=== PATIENT | female | born 1980 | race Caucasian/White ===

== ENCOUNTER 2019-02-24 23:08 | Inpatient (IN) | payer OTHER ==
--- NOTE | 2019-02-25 02:24 | HP ---
CIWA Score Nausea/Vomitin-No Nausea/No Vomiting Muscle Tremors: 1-None Visible, but [place] Anxiety: 2 Agitation: 2 Paroxysmal Sweats: 3 Orientation: 0-Oriented Tacttile Disturbances: 3-Moderate Itch/Numb/Burn (itching) Auditory Disturbances: 0-None Visual Disturbances: 0-None Headache: 0-None Present CIWA-Ar Total Score: 11 - Admission Criteria OASAS Guidelines: Admission for Medically Managed Detox: Requires at least one of the followin. CIWA greater than 12 2. Seizures within the past 24 hours 3. Delirium tremens within the past 24 hours 4. Hallucinations within the past 24 hours 5. Acute intervention needed for co occurring medical disorder 6. Acute intervention needed for co occurring psychiatric disorder 7. Severe withdrawal that cannot be handled at a lower level of care (continued vomiting, continued diarrhea, abnormal vital signs) requiring intravenous medication and/or fluids 8. Patient presents the following: Acute intervention needed for co-occurring med or psych disorder (feels depressed) Admission Criteria Met: Admission criteria met Admission ROS S - [facility] Chief Complaint: seeking detox from xanax Allergies/Adverse Reactions: Allergies Allergy/AdvReac Type Severity Reaction Status Date / Time No Known Allergies Allergy Verified 02/25/19 02:16 History of Present Illness: here for detox. client is referred by her methadone program vip. she reports methadone dose 70 mg . ldm 02/24/2019 pending verification. client presents with c/o withdrawal sx's. reports using apporx 8 mg of xanax per day denies hx/ o seizures, black outs, avh. reports longest clean time 5 years relapsing 1 year ago. lives with boyfriend, unemployed. denies legals Exam Limitations: No Limitations - Ebola screening Have you traveled outside of the country in the last 21 days: No (N) Have you had contact with anyone from an Ebola affected area: No Do you have a fever: No - Review of Systems Constitutional: Chills, Loss of Appetite, Changes in sleep, Unintentional Wgt. Loss EENT: reports: No Symptoms Reported, Dental Problems (top dentures, no bottom teeth) Respiratory: reports: No Symptoms reported Cardiac: reports: No Symptoms Reported GI: reports: No Symptoms Reported : reports: No Symptoms Reported Musculoskeletal: reports: No Symptoms Reported Integumentary: reports: No Symptoms Reported Neuro: reports: No Symptoms reported Endocrine: reports: No Symptoms Reported Hematology: reports: No Symptoms Reported Psychiatric: reports: Depressed (situational-denies si) Other Systems: Reviewed and Negative Patient History - Patient Medical History Hx Anemia: No Hx Asthma: No Hx Chronic Obstructive Pulmonary Disease (COPD): No Hx Cancer: No Hx Cardiac Disorders: No Hx Congestive Heart Failure: No Hx Hypertension: No Hx Hypercholesterolemia: No Hx Pacemaker: No HX Cerebrovascular Accident: No Hx Seizures: No Hx Dementia: No Hx Diabetes: No Hx Liver Disease: No Hx Genitourinary Disorders: No Hx Sexually Transmitted Disorders: No Hx Renal Disease (ESRD): No Hx Human Immunodeficiency Virus (HIV): No Hx Hepatitis C: Yes (pending txment) Hx Depression: Yes - Patient Surgical History Past Surgical History: Yes Other Surgical History: exp lap Anesthesia Reaction: No - PPD History Previous Implant?: Yes Documented Results: Negative w/o proof Implanted On Prior [facility] Admission?: No PPD to be Administered?: Yes - Reproductive History Patient is a Female of Child Bearing Age (11 -55 yrs old): Yes Last Menstrual Period: 02/23/19 LMP comment: reg Patient : No (neg [facility] [place]) - Smoking Cessation Smoking history: Current every day smoker Have you smoked in the past 12 months: Yes Aproximately how many cigarettes per day: 4 Cigars Per Day: 0 Hx Chewing Tobacco Use: No Initiated information on smoking cessation: Yes 'Breaking Loose' booklet given: 02/25/19 - Substance & Tx. History Hx Alcohol Use: Yes Hx Substance Use: Yes Substance Use Type: Alcohol, Cocaine, Prescribed (mtd) Hx Substance Use Treatment: No - Substances abused Alprazolam (Xanax) Substance route: Oral Frequency: Daily Amount used: 8mg Age of first use: 36 Date of last use: 02/24/19 Admission Physical Exam [facility] - Physical General Appearance: Yes: Mild Distress, Irritable, Anxious HEENTM: Yes: EOMI, Normocephalic, Normal Voice, [place], Pharynx Normal, Other ( top dentures) Respiratory: Yes: Chest Non-Tender, Lungs Clear, Normal Breath Sounds, No Respiratory Distress, No Accessory Muscle Use Neck: Yes: No masses,lesions,Nodules, Supple, Trachea in good position Breast: Yes: Breasts Symetrical (piercing noted) Cardiology: Yes: Regular Rhythm, Regular Rate, S1, S2 Abdominal: Yes: Normal Bowel Sounds, Non Tender, Soft, Surgical Scar Genitourinary: Yes: Within Normal Limits Back: Yes: Normal Inspection Musculoskeletal: Yes: full range of Motion, Gait Steady Extremities: Yes: Normal Capillary Refill, Non-Tender, Tremors (felt) Neurological: Yes: Fully Oriented, Alert, Motor Strength 5/5, Depressed Affect ( situational-denies si) Integumentary: Yes: Warm, [place] Lymphatic: Yes: Within Normal Limits - Diagnostic (1) Sedative, hypnotic or anxiolytic dependence, uncomplicated Current Visit: Yes Status: Acute (2) Cocaine dependence, uncomplicated Current Visit: Yes Status: Acute (3) Methadone maintenance therapy patient Current Visit: Yes Status: Chronic Comment: vip (4) Substance induced mood disorder Current Visit: Yes Status: Acute (5) Depressed affect Current Visit: Yes Status: Acute (6) Nicotine dependence Current Visit: Yes Status: Acute Cleared for Admission [facility] - Detox or Rehab [facility] Level of Care: Medically Managed Detox Regimen/Protocol: Valium Claeared for Rehab Admission: No Inpatient Rehab Admission - Rehab Decision to Admit Inpatient rehab admission?: No
[2019-02-25 02:26] VITALS: BMI 16.9
[2019-02-25] MEDS ORDERED: IBUPROFEN 400 MG TABLET (FP) PO PRN (02:35)
[2019-02-25] MEDS ORDERED: MAGNESIUM HYDROX 2400MG/30ML ORAL SUSPENSION 30 ML CUP PO PRN (02:35)
[2019-02-25] MEDS ORDERED: hydrOXYzine PAMOATE 25 MG CAPSULE (FP) PO PRN (02:35)
[2019-02-25] MEDS ORDERED: traZODone HCL 50 MG TABLET (FP) PO PRN (02:35)
[2019-02-25] MEDS ORDERED: diazePAM 5 MG TABLET PO PRN (02:35)
[2019-02-25] MEDS ORDERED: MENTHOL/PHENOL 1 EACH UD MM PRN (02:35)
[2019-02-25] MEDS ORDERED: PROCHLORPERAZINE MALEATE 5 MG TABLET PO PRN (02:35)
[2019-02-25] MEDS ORDERED: MELATONIN 5 MG TABLETS PO PRN (02:35)
[2019-02-25] MEDS ORDERED: MAG HYDROX/AL HYDROX/SIMETH 30 ML UNIT-DOSE CUP PO PRN (02:35)
[2019-02-25] MEDS ORDERED: METHOCARBAMOL 500 MG TABLET PO PRN (02:35)
[2019-02-25] MEDS ORDERED: DICYCLOMINE HCL 10 MG CAPSULE PO PRN (02:35)
[2019-02-25] MEDS ORDERED: NICOTINE POLACRILEX 2 MG GUM BUC PRN (02:35)
[2019-02-25] MEDS ORDERED: BISMUTH SUBSALICYLATE 524 MG/30 ML UD PO PRN (02:35)
[2019-02-25] MEDS ORDERED: MAGNESIUM CITRATE 300 ML BOTTLE PO PRN (02:35)
[2019-02-25] MEDS ORDERED: guaiFENesin 200 MG/10 ML 10 ML UNIT-DOSE CUPS PO PRN (02:35)
[2019-02-25] MEDS ORDERED: ACETAMINOPHEN 325 MG TABLET (FP) PO PRN ×2 (02:35)
[2019-02-25] MEDS ORDERED: P-EPHED 60MG/TRIPROLIDI 2.5MG TABLET PO PRN (02:35)
[2019-02-25] MEDS: diazePAM 5 MG TABLET PO SCH ×3 (05:43→22:41)
--- NOTE | 2019-02-25 08:55 | CONSULT ---
[facility] Psychiatric Consult - Data Date of interview: 02/25/19 Admission source: [facility] Identifying data: Manager Of Loss Prevention Operations approached patient multiple times for completion of psychiatric consultation. Patient presents as fatigue and somnolent. Psychiatric consultaton deferred. Nursing staff informed.
[2019-02-25] MEDS: NICOTINE 14 MG/24 HOURS TOPICAL PATCH TD SCH (10:45)
[2019-02-25] MEDS: PRENATAL VITAMINS W/ FOLIC ACID TABLET (FP) PO SCH (10:47)
--- NOTE | 2019-02-25 11:08 | PN ---
S CIWA - CIWA Score Nausea/Vomitin-Mild Nausea/No Vomiting Muscle Tremors: 2 Anxiety: 2 Agitation: 2 Paroxysmal Sweats: 2 Orientation: 1-Uncertain about Date Tacttile Disturbances: 1-Very Mild Itch/Numbness Auditory Disturbances: 0-None Visual Disturbances: 0-None Headache: 2-Mild CIWA-Ar Total Score: 13 [facility] Progress Note (SOAP) Subjective: 38 years old female admitted on 02/25/19 for benzo withdrawal sx management treated with valium detox regimen patient is in the methadone program taking 70 mg po daily take home bottle indicated 02/25/19 70 mg po order methadone 70 mg po x 1 as per verification from the take home bottle Objective: 02/25/19 11:19 Vital Signs Temperature 98.2 F 02/25/19 09:29 Pulse Rate 93 H 02/25/19 09:29 Respiratory Rate 20 02/25/19 09:29 Blood Pressure 92/55 L 02/25/19 09:29 O2 Sat by Pulse Oximetry (%) 02/25/19 11:19 lab pending Assessment: 02/25/19 11:19 benzo withdrawal sx Plan: continue valium detox regimen
[2019-02-25] MEDS ORDERED: METHADONE HCL 10 MG TABLET PO ONE (11:16)
[2019-02-25] MEDS ORDERED: METHADONE 40 MG, METHADONE 30 MG PO ONE (12:15)
[2019-02-25 12:37] LABS: HEMOGLOBIN 12.4 GM/dL (10.7-15.3); MCH 30.7 pg (25.7-33.7); MCHC 33.5 g/dl (32.0-36.0); MEAN CELL VOLUME 91.4 fl (80-96); MEAN PLT VOLUME 9.4 fl (7.5-11.1); PLATELET COUNT 156 K/MM3 (134-434); RBC 4.05 M/mm3 (3.60-5.2); RDW 13.5 % (11.6-15.6); WHITE BLOOD COUNT 6.2 K/mm3 (4.0-10.0)
[2019-02-25 12:46] LABS: ALBUMIN 3.5 g/dl (3.4-5.0); BILIRUBIN,TOTAL 0.3 mg/dL (0.2-1); BLOOD UREA NITROGEN 10.7 mg/dL (7-18); CALCIUM 8.6 mg/dL (8.5-10.1); CREATININE 0.6 mg/dL (0.55-1.3); POTASSIUM 3.8 mmol/L (3.5-5.1); TOT PROT 6.3 g/dl (6.4-8.2)
[2019-02-25] MEDS ORDERED: METHADONE HCL 10 MG TABLET ONE (15:55)
[2019-02-25] MEDS ORDERED: METHADONE HCL 40 MG DISPERSABLE TABLET ONE (15:57)
[2019-02-25] MEDS: ONDANSETRON *ODT* 4 MG TABLET SL PRN (22:40)
[2019-02-25] MEDS: THIAMINE HCL 100 MG TABLET (FP) PO SCH (22:41)
[2019-02-26] MEDS: diazePAM 5 MG TABLET PO SCH ×2 (06:05→18:46)
--- NOTE | 2019-02-26 09:49 | PN ---
S CIWA - CIWA Score Nausea/Vomitin (Zofran 4 mg sl x 1) Muscle Tremors: 1-None Visible, but [place] Anxiety: 2 Agitation: 0-Normal Activity Paroxysmal Sweats: No Perspiration Orientation: 0-Oriented Tacttile Disturbances: 0-None Auditory Disturbances: 0-None Visual Disturbances: 0-None Headache: 0-None Present CIWA-Ar Total Score: 8 [facility] Progress Note (SOAP) Subjective: 38 years old female admitted on 02/25/19 for benzo withdrawal sx management treated with valium detox regimen nausea vomited x 1 after breakfast undigested food noted zofran 4 mg sl x 1 Objective: 02/26/19 09:48 Vital Signs Temperature 97.7 F 02/26/19 09:10 Pulse Rate 80 02/26/19 09:10 Respiratory Rate 18 02/26/19 09:10 Blood Pressure 104/74 02/26/19 09:10 O2 Sat by Pulse Oximetry (%) Laboratory Last Values WBC 6.2 K/mm3 (4.0-10.0) 02/25/19 08:55 RBC 4.05 M/mm3 (3.60-5.2) 02/25/19 08:55 Hgb 12.4 GM/dL (10.7-15.3) 02/25/19 08:55 Hct 37.0 % (32.4-45.2) 02/25/19 08:55 MCV 91.4 fl (80-96) 02/25/19 08:55 MCH 30.7 pg (25.7-33.7) 02/25/19 08:55 MCHC 33.5 g/dl (32.0-36.0) 02/25/19 08:55 RDW 13.5 % (11.6-15.6) 02/25/19 08:55 Plt Count 156 K/MM3 (134-434) 02/25/19 08:55 MPV 9.4 fl (7.5-11.1) 02/25/19 08:55 Sodium 139 mmol/L (136-145) 02/25/19 08:55 Potassium 3.8 mmol/L (3.5-5.1) 02/25/19 08:55 Chloride 107 mmol/L (98-107) 02/25/19 08:55 Carbon Dioxide 29 mmol/L (21-32) 02/25/19 08:55 Anion Gap 4 MMOL/L (8-16) L 02/25/19 08:55 BUN 10.7 mg/dL (7-18) 02/25/19 08:55 Creatinine 0.6 mg/dL (0.55-1.3) 02/25/19 08:55 Est GFR (CKD-EPI)AfAm 133.07 02/25/19 08:55 Est GFR (CKD-EPI)NonAf 114.82 02/25/19 08:55 Random Glucose 101 mg/dL (74-106) 02/25/19 08:55 Calcium 8.6 mg/dL (8.5-10.1) 02/25/19 08:55 Total Bilirubin 0.3 mg/dL (0.2-1) 02/25/19 08:55 AST 19 U/L (15-37) 02/25/19 08:55 ALT 25 U/L (13-61) 02/25/19 08:55 Alkaline Phosphatase 51 U/L (45-117) 02/25/19 08:55 Total Protein 6.3 g/dl (6.4-8.2) L 02/25/19 08:55 Albumin 3.5 g/dl (3.4-5.0) 02/25/19 08:55 lab noted Assessment: 02/26/19 09:48 benzo withdrawal sx Plan: continue valium detox regimen methadone 70mg po daily verified resume daily po
[2019-02-26] MEDS ORDERED: METHADONE 40 MG, METHADONE 30 MG PO ONE (10:00)
[2019-02-26] MEDS ORDERED: ONDANSETRON *ODT* 4 MG TABLET SL ONE (10:00)
[2019-02-26] MEDS ORDERED: METHADONE HCL 10 MG TABLET PO ONE (10:00)
[2019-02-26] MEDS ORDERED: METHADONE HCL 40 MG DISPERSABLE TABLET ONE (10:32)
[2019-02-26] MEDS ORDERED: METHADONE HCL 10 MG TABLET ONE (10:32)
[2019-02-26] MEDS: PRENATAL VITAMINS W/ FOLIC ACID TABLET (FP) PO SCH (10:40)
[2019-02-26] MEDS: NICOTINE 14 MG/24 HOURS TOPICAL PATCH TD SCH (10:41)
--- NOTE | 2019-02-26 12:00 | EKG ---
Test Reason : Blood Pressure : / mmHG Vent. Rate : 087 BPM Atrial Rate : 087 BPM P-R Int : 136 ms QRS Dur : 092 ms QT Int : 410 ms P-R-T Axes : 084 081 047 degrees QTc Int : 493 ms NORMAL SINUS RHYTHM PROLONGED QT ABNORMAL ECG NO PREVIOUS ECGS AVAILABLE Confirmed by ROSY ARCEO MD ([id number]) on 02/26/2019 12:00:10 PM Referred By: WALI Confirmed By:ROSY ARCEO MD
[2019-02-26] MEDS: ONDANSETRON *ODT* 4 MG TABLET SL PRN (22:31)
[2019-02-26] MEDS: THIAMINE HCL 100 MG TABLET (FP) PO SCH (23:14)
[2019-02-27] MEDS ORDERED: METHADONE HCL 10 MG TABLET ONE (04:09)
[2019-02-27] MEDS ORDERED: METHADONE HCL 40 MG DISPERSABLE TABLET ONE (04:09)
[2019-02-27] MEDS ORDERED: METHADONE HCL 10 MG TABLET PO SCH (06:00)
[2019-02-27] MEDS ORDERED: diazePAM 5 MG TABLET PO ONE (06:00)
[2019-02-27] MEDS ORDERED: METHADONE 40 MG, METHADONE 30 MG PO SCH (06:00)
[2019-02-27 09:22] VITALS: BP 109/67; PULSE 77; TEMP 97.6
--- NOTE | 2019-02-27 10:58 | DS ---
[facility] Detox Discharge Summary Admission Date: 02/25/19 Discharge Date: 02/27/19 - History Present History: Sedative Dependence Additional Comments: 38 years old female admitted on 02/25/19 for benzo withdrawal sx management treated with valium detox regimen patient tolerated well alert oriented x 3 cardiac s1s2 regular rate rhythm respiratory clear lung bilaterally on auscultation skin warm and dry Pertinent Past History: patient agrees to return to methadone program for aftercare will bringing in lab report and medication list for follow up - Physical Exam Results Vital Signs: Vital Signs Temperature 97.6 F 02/27/19 09:21 Pulse Rate 77 02/27/19 09:21 Respiratory Rate 16 02/27/19 09:21 Blood Pressure 109/67 02/27/19 09:21 O2 Sat by Pulse Oximetry (%) Pertinent Admission Physical Exam Findings: benzo withdrawal sx - Treatment Hospital Course: Detox Protocol Followed, Detoxed Safely, Responded well, Discharged Condition Good, Rehab Referral Accepted Patient has Accepted a Rehab Referral to: methadone program vip - Medication Discharge Medications: Ambulatory Orders Methadone HCl [Dolophine HCl] 70 mg PO 02/25/19 Naloxone HCl [Narcan] 4 mg NS ASDIR PRN #1 spray 02/26/19 - Diagnosis (1) Nicotine dependence Status: Acute Qualifiers: Nicotine product type: cigarettes Substance use status: in withdrawal Qualified Code(s): F17.213 - Nicotine dependence, cigarettes, with withdrawal (2) Sedative, hypnotic or anxiolytic dependence, uncomplicated Status: Acute (3) Substance induced mood disorder Status: Suspected (4) Methadone maintenance therapy patient Status: Chronic (5) GERD (gastroesophageal reflux disease) Status: Chronic Qualifiers: Esophagitis presence: esophagitis presence not specified Qualified Code(s) : K21.9 - Gastro-esophageal reflux disease without esophagitis - AMA Did Patient Leave Against Medical Advice: No CIWA Score - CIWA Score Nausea/Vomitin-No Nausea/No Vomiting (Zofran 4 mg sl x 1) Muscle Tremors: 1-None Visible, but [place] Anxiety: 1-Mildly Anxious Agitation: 1-Slight > Activity Paroxysmal Sweats: 1-Minimal Palms Moist Orientation: 0-Oriented Tacttile Disturbances: 0-None Auditory Disturbances: 0-None Visual Disturbances: 0-None Headache: 1-Very Mild CIWA-Ar Total Score: 5
== END 2019-02-27 09:40 | disposition home or self-care (01) | DRG 773 ==
LOC: YASAS 23:08 → Y3N 02-25 02:34
PROVIDERS: ADMIT Allergy & Immunology; ATTEND Allergy & Immunology
PROC: HZ2ZZZZ Detoxification Services for Substance Abuse Treatment (ICD-10-PCS; principal; 2019-02-25)
DX: F13.230 Sedative, hypnotic or anxiolytic dependence with withdrawal, uncomplicated (principal); F11.20 Opioid dependence, uncomplicated; F14.20 Cocaine dependence, uncomplicated; F17.210 Nicotine dependence, cigarettes, uncomplicated; F19.24 Other psychoactive substance dependence with psychoactive substance-induced mood disorder; K21.9 Gastro-esophageal reflux disease without esophagitis; R45.89 Other symptoms and signs involving emotional state
CPT/HCPCS: 36415; 80053; 81025; 85027; 86593; 93005; 93010; Q0162

== ENCOUNTER 2019-04-22 22:53 | Inpatient (IN) | payer OTHER ==
[2019-04-22] MEDS ORDERED: P-EPHED 60MG/TRIPROLIDI 2.5MG TABLET PO PRN (23:10)
[2019-04-22] MEDS ORDERED: MAGNESIUM HYDROX 2400MG/30ML ORAL SUSPENSION 30 ML CUP PO PRN (23:10)
[2019-04-22] MEDS ORDERED: ACETAMINOPHEN 325 MG TABLET (FP) PO PRN ×2 (23:10)
[2019-04-22] MEDS ORDERED: ONDANSETRON *ODT* 4 MG TABLET SL PRN (23:10)
[2019-04-22] MEDS ORDERED: MAG HYDROX/AL HYDROX/SIMETH 30 ML UNIT-DOSE CUP PO PRN (23:10)
[2019-04-22] MEDS ORDERED: MELATONIN 5 MG TABLETS PO PRN (23:10)
[2019-04-22] MEDS ORDERED: IBUPROFEN 400 MG TABLET (FP) PO PRN (23:10)
[2019-04-22] MEDS ORDERED: METHOCARBAMOL 500 MG TABLET PO PRN (23:10)
[2019-04-22] MEDS ORDERED: guaiFENesin 200 MG/10 ML 10 ML UNIT-DOSE CUPS PO PRN (23:10)
[2019-04-22] MEDS ORDERED: hydrOXYzine PAMOATE 25 MG CAPSULE (FP) PO PRN (23:10)
[2019-04-22] MEDS ORDERED: MENTHOL/PHENOL 1 EACH UD MM PRN (23:10)
[2019-04-22] MEDS ORDERED: NICOTINE POLACRILEX 2 MG GUM BUC PRN (23:10)
[2019-04-22] MEDS ORDERED: MAGNESIUM CITRATE 300 ML BOTTLE PO PRN (23:10)
[2019-04-22] MEDS ORDERED: BISMUTH SUBSALICYLATE 524 MG/30 ML UD PO PRN (23:10)
--- NOTE | 2019-04-22 23:30 | HP ---
CIWA Score Nausea/Vomitin-No Nausea/No Vomiting Muscle Tremors: None Anxiety: 4-Mod. Anxious/Guarded Agitation: 4-Moderately Restless Paroxysmal Sweats: 4-Forehead w/Sweat Beads Orientation: 1-Uncertain about Date Tacttile Disturbances: 0-None Auditory Disturbances: 0-None Visual Disturbances: 0-None Headache: 3-Moderate CIWA-Ar Total Score: 16 - Admission Criteria OASAS Guidelines: Admission for Medically Managed Detox: Requires at least one of the followin. CIWA greater than 12 2. Seizures within the past 24 hours 3. Delirium tremens within the past 24 hours 4. Hallucinations within the past 24 hours 5. Acute intervention needed for co occurring medical disorder 6. Acute intervention needed for co occurring psychiatric disorder 7. Severe withdrawal that cannot be handled at a lower level of care (continued vomiting, continued diarrhea, abnormal vital signs) requiring intravenous medication and/or fluids 8. Patient presents the following: CIWA greater than 12, Acute intervention needed for co-occurring med or psych disorder (signed out ama from [facility] detox 2 days ago client report) Admission Criteria Met: Admission criteria met Admitting History and Physical - Past Medical History ...LMP: 02/23/19 - Smoking History Smoking history: Current every day smoker Have you smoked in the past 12 months: Yes Aproximately how many cigarettes per day: 4 - Alcohol/Substance Use Hx Alcohol Use: Yes Admission ROS [facility] - [facility] Chief Complaint: WITHDRAWAL SX'S Allergies/Adverse Reactions: Allergies Allergy/AdvReac Type Severity Reaction Status Date / Time No Known Allergies Allergy Verified 04/22/19 23:29 History of Present Illness: Here for detox. client is referred by her methadone program vip. she reports methadone dose 70 mg . pending verification. client presents with c/o withdrawal sx's. reports using 6 MG OF XANAX QOD AND alcohol 1 to 2 nips daily of alcohol and intermittent use of heroin. she reports signing out of [facility] 2 days ago due to an issue with another client. denies hx/o seizures, black outs, avh. reports longest clean time 5 years relapsing 1 year ago. lives with boyfriend, unemployed. denies legals Exam Limitations: No Limitations - Ebola screening Have you traveled outside of the country in the last 21 days: No (N) Have you had contact with anyone from an Ebola affected area: No Do you have a fever: No - Review of Systems Constitutional: Chills, Night Sweats, Changes in sleep EENT: reports: Dental Problems (TOP) Respiratory: reports: No Symptoms reported Cardiac: reports: No Symptoms Reported GI: reports: No Symptoms Reported, Poor Appetite : reports: No Symptoms Reported Musculoskeletal: reports: Back Pain Integumentary: reports: Sweating Neuro: reports: Seizure (hx) Endocrine: reports: No Symptoms Reported Hematology: reports: No Symptoms Reported Psychiatric: reports: Orientated x3, Anxious, Depressed (denies si) Other Systems: Reviewed and Negative Patient History - Patient Medical History Hx Anemia: No Hx Asthma: No Hx Chronic Obstructive Pulmonary Disease (COPD): No Hx Cancer: No Hx Cardiac Disorders: No Hx Congestive Heart Failure: No Hx Hypertension: No Hx Hypercholesterolemia: No Hx Pacemaker: No HX Cerebrovascular Accident: No Hx Seizures: Yes (2018) Hx Dementia: Yes Hx Diabetes: No Hx Liver Disease: No Hx Genitourinary Disorders: No Hx Sexually Transmitted Disorders: No Hx Renal Disease (ESRD): No Hx Human Immunodeficiency Virus (HIV): No Hx Hepatitis C: Yes (pending txment) Hx Depression: Yes - Patient Surgical History Past Surgical History: Yes Other Surgical History: exp lap Anesthesia Reaction: No - PPD History Previous Implant?: Yes Documented Results: Negative w/proof Implanted On Prior [facility] Admission?: Yes Date: 02/27/19 Results: 0MM PPD to be Administered?: No - Reproductive History Patient is a Female of Child Bearing Age (11 -55 yrs old): Yes Last Menstrual Period: 04/21/19 Patient : No ([place] [facility] [place] - Smoking Cessation Smoking history: Current every day smoker Have you smoked in the past 12 months: Yes Aproximately how many cigarettes per day: 4 Cigars Per Day: 0 Hx Chewing Tobacco Use: No Initiated information on smoking cessation: Yes 'Breaking Loose' booklet given: 04/22/19 - Substance & Tx. History Hx Alcohol Use: Yes Hx Substance Use: Yes Substance Use Type: Cocaine, Tranquilizers (XANAX) Hx Substance Use Treatment: Yes ([facility]) - Substances abused Alprazolam (Xanax) Substance route: Oral Frequency: Daily Amount used: 8MG Age of first use: 36 Date of last use: 04/22/19 Heroin Other (specify): sniff Frequency: 3-6 times per week Amount used: 5 bags Age of first use: 16 Date of last use: 04/22/19 Admission Physical Exam [facility] - Physical General Appearance: Yes: Moderate Distress, Sweating, Anxious HEENTM: Yes: EOMI, Normocephalic, Normal Voice, [place], Pharynx Normal, Nasal Congestion, Other (dentures uppers) Respiratory: Yes: Chest Non-Tender, Lungs Clear, Normal Breath Sounds, No Respiratory Distress, No Accessory Muscle Use Neck: Yes: No masses,lesions,Nodules, Supple, Trachea in good position Breast: Yes: Breasts Symetrical, Other (nipple ring) Cardiology: Yes: Regular Rhythm, Regular Rate, S1, S2 Abdominal: Yes: Normal Bowel Sounds, Flat, Soft, Surgical Scar Genitourinary: Yes: Within Normal Limits Back: Yes: Normal Inspection Musculoskeletal: Yes: Gait Steady Extremities: Yes: Normal Capillary Refill, Normal Range of Motion, Non-Tender Neurological: Yes: Fully Oriented, Alert, Motor Strength 5/5, Depressed Affect Integumentary: Yes: Moist, Other (pilorection) Lymphatic: Yes: Within Normal Limits - Diagnostic (1) Cocaine dependence, uncomplicated Current Visit: Yes Status: Acute (2) Depressed affect Current Visit: Yes Status: Acute (3) Nicotine dependence Current Visit: Yes Status: Chronic Qualifiers: Nicotine product type: cigarettes Substance use status: uncomplicated Qualified Code(s): F17.210 - Nicotine dependence, cigarettes, uncomplicated (4) Sedative, hypnotic or anxiolytic dependence, uncomplicated Current Visit: Yes Status: Acute (5) GERD (gastroesophageal reflux disease) Current Visit: Yes Status: Chronic Qualifiers: Esophagitis presence: esophagitis presence not specified Qualified Code(s) : K21.9 - Gastro-esophageal reflux disease without esophagitis (6) Methadone maintenance therapy patient Current Visit: Yes Status: Chronic Comment: vip (7) Substance induced mood disorder Current Visit: Yes Status: Suspected (8) Alcohol dependence with withdrawal, uncomplicated Current Visit: Yes Status: Acute Cleared for Admission [facility] - Detox or Rehab [facility] Level of Care: Medically Managed Detox Regimen/Protocol: Librium Claeared for Rehab Admission: No Breathalyzer - Breathalyzer Breathalyzer: 0 Urine Drug Screen - Test Device Lot number: [id number] Expiration date: 10/25/20 - Control Is test valid?: Yes - Results Drug screen NEGATIVE: No Urine drug screen results: HOLDEN-Cocaine, MTD-Methadone, BZO-Benzodiazepines Inpatient Rehab Admission - Rehab Decision to Admit Inpatient rehab admission?: No
[2019-04-22 23:44] VITALS: BMI 19.1
[2019-04-23] MEDS ORDERED: chlordiazePOXIDE HCL 10 MG CAPSULE PO PRN (00:08)
[2019-04-23] MEDS ORDERED: chlordiazePOXIDE HCL 25 MG CAPSULE PO SCH (05:00)
[2019-04-23 06:20] VITALS: BP 104/65; PULSE 81; TEMP 97.8
--- NOTE | 2019-04-23 07:41 | DS ---
[facility] Detox Discharge Summary Admission Date: 04/22/19 Discharge Date: 04/23/19 - History Present History: Alcohol Dependence, Cocaine Dependence, Opioid Dependence, Sedative Dependence, MMTP Additional Comments: client aborted admission after a few hours on the unit. attempts to encourage client to continue txment not successful. client states she wants to sign out as she doesnt like this place. - Physical Exam Results Vital Signs: Vital Signs Temperature 97.8 F 04/23/19 06:19 Pulse Rate 81 04/23/19 06:19 Respiratory Rate 18 04/23/19 06:19 Blood Pressure 104/65 04/23/19 06:19 O2 Sat by Pulse Oximetry (%) - Treatment Hospital Course: Discharged Condition Good Patient has Accepted a Rehab Referral to: returning back to her mmtp - Medication Discharge Medications: Ambulatory Orders Methadone HCl [Dolophine HCl] 70 mg PO DAILY 02/25/19 - Diagnosis (1) Cocaine dependence, uncomplicated Current Visit: Yes Status: Acute (2) Depressed affect Current Visit: Yes Status: Acute (3) Nicotine dependence Current Visit: Yes Status: Chronic Qualifiers: Nicotine product type: cigarettes Substance use status: uncomplicated Qualified Code(s): F17.210 - Nicotine dependence, cigarettes, uncomplicated (4) Sedative, hypnotic or anxiolytic dependence, uncomplicated Current Visit: Yes Status: Acute (5) GERD (gastroesophageal reflux disease) Current Visit: Yes Status: Chronic Qualifiers: Esophagitis presence: esophagitis presence not specified Qualified Code(s) : K21.9 - Gastro-esophageal reflux disease without esophagitis (6) Methadone maintenance therapy patient Current Visit: Yes Status: Chronic (7) Substance induced mood disorder Current Visit: Yes Status: Suspected (8) Alcohol dependence with withdrawal, uncomplicated Current Visit: Yes Status: Acute - AMA Did Patient Leave Against Medical Advice: Yes
[2019-04-23] MEDS ORDERED: PRENATAL VITAMINS W/ FOLIC ACID TABLET (FP) PO SCH (10:00)
[2019-04-23] MEDS ORDERED: NICOTINE 14 MG/24 HOURS TOPICAL PATCH TD SCH (10:00)
[2019-04-23] MEDS ORDERED: THIAMINE HCL 100 MG TABLET (FP) PO SCH (22:00)
[2019-04-24] MEDS ORDERED: chlordiazePOXIDE 5 MG CAPSULE PO SCH (05:00)
[2019-04-25] MEDS ORDERED: chlordiazePOXIDE HCL 10 MG CAPSULE PO PRN
[2019-04-25] MEDS ORDERED: chlordiazePOXIDE HCL 10 MG CAPSULE PO SCH (05:00)
[2019-04-26] MEDS ORDERED: chlordiazePOXIDE HCL 10 MG CAPSULE PO ONE (05:00)
== END 2019-04-23 07:41 | disposition left against medical advice (07) | DRG 770 ==
LOC: YASAS 22:53 → Y3N 23:48
PROVIDERS: ADMIT Allergy & Immunology; ATTEND Allergy & Immunology
PROC: HZ2ZZZZ Detoxification Services for Substance Abuse Treatment (ICD-10-PCS; principal; 2019-04-22)
DX: F10.230 Alcohol dependence with withdrawal, uncomplicated (principal); F11.20 Opioid dependence, uncomplicated; F13.230 Sedative, hypnotic or anxiolytic dependence with withdrawal, uncomplicated; F14.20 Cocaine dependence, uncomplicated; F17.210 Nicotine dependence, cigarettes, uncomplicated; F32.9 Major depressive disorder, single episode, unspecified; F19.24 Other psychoactive substance dependence with psychoactive substance-induced mood disorder; K21.9 Gastro-esophageal reflux disease without esophagitis; Z86.69 Personal history of other diseases of the nervous system and sense organs; Z56.0 Unemployment, unspecified

== ENCOUNTER 2019-04-29 02:26 | Inpatient (IN) | payer OTHER ==
[2019-04-29 03:31] VITALS: BP 111/66; PULSE 96; TEMP 98.1; BMI 19.4
--- NOTE | 2019-04-29 04:30 | HP ---
CIWA Score Nausea/Vomitin-No Nausea/No Vomiting Muscle Tremors: 4-Moderate,w/Arms Extend Anxiety: 3 Agitation: 4-Moderately Restless Paroxysmal Sweats: 3 (Increased facial moisture) Orientation: 0-Oriented Tacttile Disturbances: 0-None Auditory Disturbances: 0-None Visual Disturbances: 0-None Headache: 1-Very Mild CIWA-Ar Total Score: 15 - Admission Criteria OASAS Guidelines: Admission for Medically Managed Detox: Requires at least one of the followin. CIWA greater than 12 2. Seizures within the past 24 hours 3. Delirium tremens within the past 24 hours 4. Hallucinations within the past 24 hours 5. Acute intervention needed for co occurring medical disorder 6. Acute intervention needed for co occurring psychiatric disorder 7. Severe withdrawal that cannot be handled at a lower level of care (continued vomiting, continued diarrhea, abnormal vital signs) requiring intravenous medication and/or fluids 8. Patient presents the following: CIWA greater than 12 Admission Criteria Met: Admission criteria met Admitting History and Physical - Past Medical History ...LMP: 04/21/19 - Smoking History Smoking history: Current every day smoker Have you smoked in the past 12 months: Yes Aproximately how many cigarettes per day: 4 - Alcohol/Substance Use Hx Alcohol Use: Yes Admission ROS S - HPI Chief Complaint: "I need to stop the pills and liquor" Allergies/Adverse Reactions: Allergies Allergy/AdvReac Type Severity Reaction Status Date / Time No Known Allergies Allergy Verified 04/22/19 23:29 History of Present Illness: 39 yo presents w/ alcohol withdrawal symptoms seeking detox. CINTHYA: 0.0 UTox:HOLDEN/MTD/BZO Denies hx seizures, blackouts or overdoses. BASED ON PATIENT'S ASSESSMENT, PATIENT NEEDS TREATMENT FOR MORE THAN 2 NIGHTS. Discussed patient past 2 admissions and leaving AMA. She states that she will be staying and completing this time. Alcohol use began at age 15. Currently drinks 1 pint/day. Last drink this a.m. Benzo(Xanax and Klonopin) use began at age 18. Currently takes 3- 2mg pills/day. Heroin use began at age 15. Stable on methadone. Currently on VIP -OTP. Current dose is Methadone 70 mg. Tuesday reviewed and in security. Denies recent opiate relapse. Encouraged to obtain a Narcan kit. Nicotine: Smokes 1/2 PPD. PMHx: Endocarditis @ age 20. MHHx: Anxiety. Depression. Insomnia. Denies thoughts of harming self or others. SHx: Domiciled. Unemployed. Denies legal issues. Patient Name: Chichi Pires Date: 1980 Address: [facility] [address] [place] [address] Sex: Female Rx Written Rx Dispensed Drug Quantity Days Supply Prescriber Name 04/06/2019 04/06/2019 zolpidem tartrate 10 mg tablet 30 30 Ashvin Carrion 02/01/2019 02/02/2019 zolpidem tartrate 10 mg tablet 30 30 Tosin Pool NP 10/27/2018 12/28/2018 zolpidem tartrate 10 mg tablet 30 30 Ashvin Carrion 10/27/2018 12/01/2018 zolpidem tartrate 10 mg tablet 30 30 Ashvin Carrion 10/27/2018 11/06/2018 zolpidem tartrate 10 mg tablet 30 30 Ashvin Carrion Patient Name: Chichi Pires Date: 1980 Address: [facility] [address] [place] [address] Sex: Female Rx Written Rx Dispensed Drug Quantity Days Supply Prescriber Name 02/27/2019 02/28/2019 zolpidem tartrate 10 mg tablet 28 28 Tosin Pool NP Patient Name: Chichi Pires Date: 1980 Address: [address] [place], [place] [address] [address] Sex: Female Rx Written Rx Dispensed Drug Quantity Days Supply Prescriber Name 09/13/2018 09/13/2018 zolpidem tartrate 10 mg tablet 30 30 Ashvin Carrion Exam Limitations: No Limitations - Ebola screening Have you traveled outside of the country in the last 21 days: No Have you had contact with anyone from an Ebola affected area: No Have you been sick,other than usual withdrawal symptoms: No Do you have a fever: No - Review of Systems Constitutional: Chills, Changes in sleep (Difficulty staying asleep), Unintentional Wgt. Loss EENT: reports: Blurred Vision, Dental Problems (Dentures.) Respiratory: reports: No Symptoms reported Cardiac: reports: Other (Heart murmur) GI: reports: Indigestion (Heart burn), Abdominal cramping : reports: No Symptoms Reported Musculoskeletal: reports: No Symptoms Reported Integumentary: reports: No Symptoms Reported Neuro: reports: Headache (Frontal achy head ache "2") Endocrine: reports: No Symptoms Reported, Increased Thirst Hematology: reports: No Symptoms Reported Psychiatric: reports: Judgement Intact, Orientated x3 (Missed day by 1), Agitated, Anxious, Depressed (Denies thoughts of harming self or others.) Patient History - Patient Medical History Hx Anemia: No Hx Asthma: No Hx Chronic Obstructive Pulmonary Disease (COPD): No Hx Cancer: No Hx Cardiac Disorders: No Hx Congestive Heart Failure: No Hx Hypertension: No Hx Hypercholesterolemia: No Hx Pacemaker: No HX Cerebrovascular Accident: No Hx Seizures: Yes (2018) Hx Dementia: Yes Hx Diabetes: No Hx Gastrointestinal Disorders: No Hx Liver Disease: No Hx Genitourinary Disorders: No Hx Sexually Transmitted Disorders: No Hx Renal Disease (ESRD): No Hx Human Immunodeficiency Virus (HIV): No Hx Hepatitis C: Yes (pending txment) Hx Depression: Yes - Patient Surgical History Past Surgical History: Yes Other Surgical History: exp lap Anesthesia Reaction: No - PPD History Previous Implant?: Yes Documented Results: Negative w/proof Implanted On Prior R Admission?: Yes Date: 02/27/19 Results: 0MM PPD to be Administered?: No - Reproductive History Patient is a Female of Child Bearing Age (11 -55 yrs old): Yes Last Menstrual Period: 04/21/19 Patient : No - Smoking Cessation Smoking history: Current every day smoker Have you smoked in the past 12 months: Yes Aproximately how many cigarettes per day: 10 Cigars Per Day: 0 Hx Chewing Tobacco Use: No Initiated information on smoking cessation: Yes 'Breaking Loose' booklet given: 04/29/19 - Substance & Tx. History Hx Alcohol Use: Yes Hx Substance Use: Yes Substance Use Type: Alcohol, Cocaine, Heroin Hx Substance Use Treatment: Yes (detox, MMTP) Admission Physical Exam BHS - Vital Signs Vital Signs: Vital Signs - 24 hr 04/29/19 03:29 Temperature 98.1 F Pulse Rate 96 H Respiratory 16 Rate Blood Pressure 111/66 - Physical General Appearance: Yes: Mild Distress, Thin, Tremorous, Sweating (Increased facial moisture), Anxious HEENTM: Yes: EOMI, Hearing grossly Normal, Normocephalic, Normal Voice, BYRON, Pharynx Normal, Other (Has on disposable contact lenses.) Respiratory: Yes: Lungs Clear, Normal Breath Sounds, No Respiratory Distress Neck: Yes: No masses,lesions,Nodules, Supple Breast: Yes: Breast Exam Deferred Cardiology: Yes: Regular Rhythm, Regular Rate, S1, S2, Murmur Abdominal: Yes: Non Tender, Flat, Soft, Increased Bowel Sounds Genitourinary: Yes: Within Normal Limits Back: Yes: Normal Inspection Musculoskeletal: Yes: full range of Motion, Gait Steady Extremities: Yes: Normal Capillary Refill, Normal Range of Motion Neurological: Yes: film archivist II-XII NML intact, Fully Oriented, Alert, Motor Strength 5/5, Normal Mood/Affect Integumentary: Yes: Normal Color, Warm, Moist (Increased facial moisture), Track Lawrence (Old track lawrence) Lymphatic: Yes: Within Normal Limits - Diagnostic (1) Alcohol dependence with withdrawal, uncomplicated Current Visit: Yes Status: Acute (2) Cocaine dependence, uncomplicated Current Visit: Yes Status: Chronic (3) Sedative, hypnotic or anxiolytic dependence, uncomplicated Current Visit: No Status: Suspected (4) GERD (gastroesophageal reflux disease) Current Visit: Yes Status: Chronic Qualifiers: Esophagitis presence: esophagitis presence not specified Qualified Code(s) : K21.9 - Gastro-esophageal reflux disease without esophagitis (5) Methadone maintenance therapy patient Current Visit: Yes Status: Chronic Comment: vip (6) Nicotine dependence Current Visit: Yes Status: Chronic Qualifiers: Nicotine product type: cigarettes Substance use status: uncomplicated Qualified Code(s): F17.210 - Nicotine dependence, cigarettes, uncomplicated (7) Murmur, cardiac Current Visit: Yes Status: Chronic Cleared for Admission [facility] - Detox or Rehab [facility] Level of Care: Medically Managed Detox Regimen/Protocol: Librium Claeared for Rehab Admission: No Breathalyzer - Breathalyzer Breathalyzer: 0 POC Urine test - Test device test lot number: [id number] Expiration date: 10/25/20 - Control test control: Yes - Result Urine Test Results: Negative - NO line present Urine Drug Screen - Test Device Lot number: [id number] Expiration date: 02/19/21 - Control Is test valid?: Yes - Results Drug screen NEGATIVE: No Urine drug screen results: HOLDEN-Cocaine, MTD-Methadone, BZO-Benzodiazepines Inpatient Rehab Admission - Rehab Decision to Admit Inpatient rehab admission?: No
[2019-04-29] MEDS ORDERED: chlordiazePOXIDE HCL 10 MG CAPSULE PO PRN (06:05)
[2019-04-29] MEDS ORDERED: IBUPROFEN 400 MG TABLET (FP) PO PRN (06:05)
[2019-04-29] MEDS ORDERED: MAG HYDROX/AL HYDROX/SIMETH 30 ML UNIT-DOSE CUP PO PRN (06:05)
[2019-04-29] MEDS ORDERED: NICOTINE POLACRILEX 2 MG GUM BUC PRN (06:05)
[2019-04-29] MEDS ORDERED: MAGNESIUM CITRATE 300 ML BOTTLE PO PRN (06:05)
[2019-04-29] MEDS ORDERED: BISMUTH SUBSALICYLATE 524 MG/30 ML UD PO PRN (06:05)
[2019-04-29] MEDS ORDERED: MAGNESIUM HYDROX 2400MG/30ML ORAL SUSPENSION 30 ML CUP PO PRN (06:05)
[2019-04-29] MEDS ORDERED: MELATONIN 5 MG TABLETS PO PRN (06:05)
[2019-04-29] MEDS ORDERED: ACETAMINOPHEN 325 MG TABLET (FP) PO PRN ×2 (06:05)
[2019-04-29] MEDS ORDERED: MENTHOL/PHENOL 1 EACH UD MM PRN (06:05)
[2019-04-29] MEDS ORDERED: chlordiazePOXIDE HCL 25 MG CAPSULE PO ONE (06:30)
--- NOTE | 2019-04-29 08:39 | DS ---
[facility] Detox Discharge Summary Admission Date: 04/29/19 Discharge Date: 04/29/19 - History Present History: Alcohol Dependence, Cocaine Dependence, Opioid Dependence, MMTP - Physical Exam Results Vital Signs: Vital Signs Temperature 98.1 F 04/29/19 03:29 Pulse Rate 96 H 04/29/19 03:29 Respiratory Rate 16 04/29/19 03:29 Blood Pressure 111/66 04/29/19 03:29 O2 Sat by Pulse Oximetry (%) Pertinent Admission Physical Exam Findings: Patient was found with contraband (Sander Operator, balloon, plastic stem, eraser, and a small zip lock bag.) Patient flushed other items down toilet and stated it was Xanax and Ambien. Patient denies taking pills. Patient states the stem and taxi truck driver was given to her by another patient on the unit. Patient became angry, demanded clothes, and left unit without signing AMA form. Patient alert and oriented w/ steady gait. Patient was given back Methadone THB. - Medication Discharge Medications: Ambulatory Orders Methadone HCl [Dolophine HCl] 70 mg PO DAILY 02/25/19 - Diagnosis (1) Alcohol dependence with withdrawal, uncomplicated Current Visit: Yes Status: Acute (2) Cocaine dependence, uncomplicated Current Visit: Yes Status: Chronic (3) Sedative, hypnotic or anxiolytic dependence, uncomplicated Current Visit: No Status: Suspected (4) GERD (gastroesophageal reflux disease) Current Visit: Yes Status: Chronic Qualifiers: Esophagitis presence: esophagitis presence not specified Qualified Code(s) : K21.9 - Gastro-esophageal reflux disease without esophagitis (5) Methadone maintenance therapy patient Current Visit: Yes Status: Chronic (6) Nicotine dependence Current Visit: Yes Status: Chronic Qualifiers: Nicotine product type: cigarettes Substance use status: uncomplicated Qualified Code(s): F17.210 - Nicotine dependence, cigarettes, uncomplicated (7) Murmur, cardiac Current Visit: Yes Status: Chronic - AMA Did Patient Leave Against Medical Advice: Yes (Abort admission. )
--- NOTE | 2019-04-29 08:44 | PN ---
[facility] Progress Note Note: Patient was found with contraband (Melter Clerk, balloon, plastic stem, eraser, and a small zip lock bag.) Patient flushed other items down toilet and stated it was Xanax and Ambien. Patient denies taking pills. Patient states the stem and pipe insulator helper was given to her by another patient on the unit. Patient became angry, demanded clothes, and left unit without signing AMA form. Patient alert and oriented w/ steady gait. Patient accompanied off unit by security and this provider. Nursing Public Health Nutritionist Minerva cleary. Patient was given back Methadone THB.
[2019-04-29] MEDS ORDERED: NICOTINE 14 MG/24 HOURS TOPICAL PATCH TD SCH (10:00)
[2019-04-29] MEDS ORDERED: PANTOPRAZOLE 20 MG TABLET PO SCH (10:00)
[2019-04-29] MEDS ORDERED: PRENATAL VITAMINS W/ FOLIC ACID TABLET (FP) PO SCH (10:00)
[2019-04-29] MEDS ORDERED: METHADONE HCL 10 MG TABLET PO ONE (10:00)
[2019-04-29] MEDS ORDERED: chlordiazePOXIDE HCL 25 MG CAPSULE PO SCH (13:00)
[2019-04-29] MEDS ORDERED: THIAMINE HCL 100 MG TABLET (FP) PO SCH (22:00)
[2019-05-01] MEDS ORDERED: chlordiazePOXIDE 5 MG CAPSULE PO SCH (05:00)
[2019-05-02] MEDS ORDERED: chlordiazePOXIDE HCL 10 MG CAPSULE PO PRN
[2019-05-02] MEDS ORDERED: chlordiazePOXIDE HCL 10 MG CAPSULE PO SCH (05:00)
[2019-05-03] MEDS ORDERED: chlordiazePOXIDE HCL 10 MG CAPSULE PO ONE (05:00)
== END 2019-04-29 07:52 | disposition left against medical advice (07) | DRG 770 ==
LOC: YASAS 02:26 → Y6N 04:55
PROVIDERS: ADMIT Allergy & Immunology; ATTEND Allergy & Immunology
PROC: HZ2ZZZZ Detoxification Services for Substance Abuse Treatment (ICD-10-PCS; principal; 2019-04-28)
DX: F10.230 Alcohol dependence with withdrawal, uncomplicated (principal); F11.20 Opioid dependence, uncomplicated; F13.230 Sedative, hypnotic or anxiolytic dependence with withdrawal, uncomplicated; F14.20 Cocaine dependence, uncomplicated; F17.210 Nicotine dependence, cigarettes, uncomplicated; R01.1 Cardiac murmur, unspecified; K21.9 Gastro-esophageal reflux disease without esophagitis; Z86.69 Personal history of other diseases of the nervous system and sense organs